=== PATIENT | male | born 1980 | race Caucasian/White ===

== ENCOUNTER 2018-02-06 16:06 | Emergency (ER) | payer BC, OTHER ==
[2018-02-06 16:59] VITALS: BP 129/86
--- NOTE | 2018-02-06 17:03 | UC ---
Laceration HPI - HPI Summary HPI Summary: 37 y/o male presents to the urgent care c/o RT hand laceration s/p manipulating his dean about 1 hrs ago this afternoon. Bleeding stopped w/ pressure. Pain is 7/10 sharp and throbbing. He can move hand and fingers w/o any difficulty. Pt is not sure when was his last Tetanus vaccine. Pt denies fever, numbness or tingling sensation over Rt hand, chest pain, abdominal pain, N/V/D. Pt is RT hand dominant. - History Of Current Complaint Chief Complaint: UCLaceration Stated Complaint: RIGHT HAND LAC Time Seen by Provider: 02/06/18 17:02 Hx Obtained From: Patient Laceration Location: Hand - RT hand Mechanism Of Injury: Sharp Trauma Onset/Duration: Sudden Onset, Lasting Hours - 1 hrs Pain Intensity: 7 Pain Scale Used: 0-10 Numeric Aggravating Factors: Movement Related History: Dominant Hand Right - Allergies/Home Medications Allergies/Adverse Reactions: Allergies Allergy/AdvReac Type Severity Reaction Status Date / Time No Known Allergies Allergy Verified 02/06/18 16:50 PMH/Surg Hx/FS Hx/Imm Hx Previously Healthy: Yes - Pt denies PMHX - Surgical History Surgical History: Yes Surgery Procedure, Year, and Place: 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 RATE,- 12/2016 - Family History Known Family History: Positive: Cardiac Disease, Hypertension, Diabetes - Social History Occupation: Employed Full-time Lives: With Family Alcohol Use: Weekly Alcohol Amount: 1-2 times a week Substance Use Type: None Smoking Status (MU): Former Smoker Type: Cigars Have You Smoked in the Last Year: Yes - Immunization History Most Recent Tetanus Shot: PT UNSURE Hx Tetanus, Diphtheria Vaccination: No Review of Systems Constitutional: Negative Skin: Other - RT hand laceration Eyes: Negative ENT: Negative Respiratory: Negative Cardiovascular: Negative Gastrointestinal: Negative Genitourinary: Negative Motor: Negative Neurovascular: Negative Musculoskeletal: Other: - RT hand pain s/p laceration Neurological: Negative Psychological: Negative Is Patient Immunocompromised?: No All Other Systems Reviewed And Are Negative: Yes Physical Exam - Summary Physical Exam Summary: Vital Signs Reviewed: Yes General: well developed, well nourished male sitting in the examining table w/o any apparent distress Eye Exam: Normal Eyes: Positive: Conjunctiva Clear - PERRLA, EOMI, fundi grossly normal ENT: Positive: Normal ENT inspection, Hearing grossly normal, Pharynx normal, TMs normal Neck: Positive: Supple, Nontender, No Lymphadenopathy Respiratory: Positive: Chest non-tender, Lungs clear, Normal breath sounds, No respiratory distress Cardiovascular: Positive: RRR, No Murmur, Pulses Normal, Brisk Capillary Refill Abdomen Description: Positive: Nontender, No Organomegaly, Soft. Negative: CVA Tenderness (R), CVA Tenderness (L) Bowel Sounds: Positive: Present Musculoskeletal: Positive: Strength Intact, ROM Intact, No Edema Neurological: Positive: Alert, Muscle Tone Normal Psychological Exam: Normal Skin: Positive: Dorsal side of the hand between first and second phalanx w/ a superficial laceration about 3.0cm in size, semilunar in shape, bleeding, no foreign body observed. mild tenderness to palpation, FROM of RT arm,hand and fingers, sensation intact, capillary refill brisk, and pulses WNL. Triage Information Reviewed: Yes Vital Signs: Initial Vital Signs Temp 98 F 02/06/18 16:51 Pulse 69 02/06/18 16:51 Resp 18 02/06/18 16:51 BP 129/86 02/06/18 16:51 Pulse Ox 98 02/06/18 16:51 Laceration Repair - Laceration Repair 1 Description: Linear - semilunar in shape Laceration Size After Repair: Length (cm) - 3.0cm Modified For Repair: No Type Injection: Local Anesthesia Used: 1.0% Lido - 3ml Cleansing Completed Via Routine Prep: Yes Irrigation With Pressure Irrigation Device: Yes Closure Material: Sutures - 7 sutures placed Closure Method: Single Layer Suture Of: Skin, SQ Suture Type: Nylon - 5.0 Laceration Course/Dx - Course/Dx Course Of Treatment: 37 y/o male presents to the urgent care c/o RT hand laceration s/p manipulating his dean about 1 hrs ago this afternoon. Bleeding stopped w/ pressure. Pain is 7/10 sharp and throbbing. He can move hand and fingers w/o any difficulty. Pt is not sure when was his last Tetanus vaccine. Pt denies fever, numbness or tingling sensation over Rt hand, chest pain, abdominal pain, N/V/D. Pt is RT hand dominant.Hx obtained. Pt w/Dorsal side of the hand between first and second phalanx w/ a superficial laceration about 3.0cm in size, semilunar in shape, bleeding, no foreign body observed. mild tenderness to palpation on examination. LACERATION PROCEDURE NOTE: . Copious irrigation was done with saline by the nurse and the wound explored. There was no FB or deep structure injury noted. FROM of RT forearm, hand and fingers. procedure was explained and consent obtained, Timeout performed. The wound was anesthetized with 3mL of 1% lido with good anesthesia. Sterile drape and prep were don. There were 16 sutures with 5.0 nylon type of suture. The length of the wound after closure was 3.0cm. No debridement done. Wound was covered bacitracin with sterile non adherent dressing. The Pt tolerated the procedure well without adverse effects. Neurovascular intact and FROM. Tdap ordered and applied by nurse. Pt advised to f/u suture removal in 10-14 days and if any signs of infection develop to immediately return to the urgent care of PCP for further management and treatment. Pt understood and agreed and left the clinic ambulating A&Ox3. - Differential Dx - Laceration/Wound Differental Diagnoses: Abrasion, Laceration, Puncture Wound, Tendon Laceration Provider Diagnoses: 1- RT hand laceration repair Discharge - Sign-Out/Discharge Documenting (check all that apply): Discharge/Admit/Transfer - D/C home - Discharge Plan Condition: Stable Disposition: HOME Prescriptions: Bacitracin OINTMENT* 1 applic TOPICAL BID #1 tube Patient Education Materials: Care For Your Stitches (DC), Laceration (ED) Forms: *Work Release Referrals: Dat Giordano MD [Primary Care Provider] - 1 Week Additional Instructions: 1-Please apply topical antibiotic over the wound. Keep wound clean and dry. Avoid too much flexion of your hand. 2- F/u suture removal in 10-14 days days days w/ your PCP or here at the urgent care. 3-Take Ibuprofen or Tylenol PO q6-8hrs prn for pain or swelling. 4- If you develop fever or redness around laceration please return to the urgetn care or f/u w/ your PCP for further management. - Billing Disposition and Condition Condition: STABLE Disposition: Home
[2018-02-06] MEDS ORDERED: Lidocaine 1%* 5 ML VIAL INJ ONE (17:16)
[2018-02-06] MEDS ORDERED: Ibuprofen TAB* 400 MG PO ONE (17:16)
[2018-02-06] MEDS ORDERED: Tetan/Diph/Pertus SYR(Tdap)* 0.5 ML SYR(BOOSTRIX) use SYR IM ONE (17:16)
== END 2018-02-06 18:28 | disposition home or self-care (01) ==
LOC: UCCORT 16:06
DX: S61.411A Laceration without foreign body of right hand, initial encounter (principal); W45.8XXA Other foreign body or object entering through skin, initial encounter; Y93.9 Activity, unspecified; Y99.9 Unspecified external cause status
CPT/HCPCS: 12001; 90471; 90715; 99212; A9270-GY; G0463

== ENCOUNTER 2018-02-12 09:34 | Emergency (ER) | payer BC ==
[2018-02-12 09:55] VITALS: BP 133/91
--- NOTE | 2018-02-12 10:17 | UC ---
HPI Wound/Suture Re-check - HPI Summary HPI Summary: Pt presents with c/o worsening tenderness, erythema at laceration/suture site on right dorsal aspect of hand. Pt hand sutures placed at [facility] on 03/08/18. Denies fever or chills. - History Of Current Complaint Chief Complaint: UCUpperExtremity Stated Complaint: SUTURE RECHECK Time Seen by Provider: 02/12/18 10:01 Hx Obtained From: Patient Onset/Duration: Gradual Onset, Lasting Days, Still Present Severity: Moderate Pain Intensity: 7 - Allergies/Home Medications Allergies/Adverse Reactions: Allergies Allergy/AdvReac Type Severity Reaction Status Date / Time No Known Allergies Allergy Verified 02/12/18 09:51 Home Medications: Home Medications Acetaminophen [Tylenol Extra Strength] 1,000 mg PO Q6HR PRN 02/12/18 [History Confirmed 02/12/18] PMH/Surg Hx/FS Hx/Imm Hx Previously Healthy: Yes - Surgical History Surgical History: Yes Surgery Procedure, Year, and Place: 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 RATE,- 12/2016 - Family History Known Family History: Positive: None, Cardiac Disease, Hypertension, Diabetes - Social History Occupation: Employed Full-time Lives: With Family Alcohol Use: Weekly Alcohol Amount: 1-2 times a week Substance Use Type: None Smoking Status (MU): Former Smoker Type: Cigars Have You Smoked in the Last Year: Yes - Immunization History Most Recent Tetanus Shot: 01/2018 Hx Tetanus, Diphtheria Vaccination: No Review of Systems Constitutional: Negative Skin: Other - erythema, tenderness, mild swelling Eyes: Negative ENT: Negative Respiratory: Negative Cardiovascular: Negative Gastrointestinal: Negative Genitourinary: Negative Motor: Negative, Decreased ROM - tenderness with ROm , right hand Neurovascular: Negative Musculoskeletal: Edema, Myalgia - right hand Neurological: Negative Psychological: Negative Is Patient Immunocompromised?: No All Other Systems Reviewed And Are Negative: Yes Physical Exam Triage Information Reviewed: Yes Appearance: Well-Appearing Vital Signs: Initial Vital Signs Temp 98.5 F 02/12/18 09:48 Pulse 69 02/12/18 09:48 Resp 15 02/12/18 09:48 BP 133/91 02/12/18 09:48 Pulse Ox 98 02/12/18 09:48 Vital Signs Reviewed: Yes Eye Exam: Normal ENT Exam: Normal Dental Exam: Normal Neck exam: Normal Respiratory Exam: Normal Respiratory: Positive: No respiratory distress Musculoskeletal: Positive: Edema @ - right hand, dorsal aspect, between, thumb and second finger. Neurological Exam: Normal Psychological Exam: Normal Skin Exam: Other - sutures intact, mild erythema, mild tenderness and scant amount of crusted, serous, yellow drainage. Course/Dx - Differential Dx - Laceration/Wound Differential Diagnoses: Cellulitis, Suture Removal Provider Diagnoses: sutures removed,. infected wound right hand Discharge - Sign-Out/Discharge Documenting (check all that apply): Discharge/Admit/Transfer - Discharge Plan Condition: Stable Disposition: HOME Prescriptions: Cephalexin CAP* [Keflex 500 CAP*] 500 mg PO Q12H #10 cap Fluconazole 100 MG TAB* [Diflucan 100 MG TAB*] 100 mg PO DAILY #2 tab Sulfamethox/Trimethoprim DS* [Bactrim DS 800/160 TAB*] 1 tab PO Q12H #10 tab Patient Education Materials: Wound Infection (ED), Acute Wound Care (ED) Referrals: Dat Giordano MD [Primary Care Provider] - If Needed Additional Instructions: Please follow up with your PCP or return to clinic as needed. - Billing Disposition and Condition Condition: STABLE Disposition: Home
== END 2018-02-12 10:36 | disposition home or self-care (01) ==
LOC: UCCORT 09:34
DX: S61.411D Laceration without foreign body of right hand, subsequent encounter (principal); L08.9 Local infection of the skin and subcutaneous tissue, unspecified; Z87.891 Personal history of nicotine dependence; X58.XXXD Exposure to other specified factors, subsequent encounter
CPT/HCPCS: 99213; G0463

== ENCOUNTER 2019-10-26 08:18 | Emergency (ER) | payer BC, OTHER ==
[2019-10-26 08:54] VITALS: BP 138/84
--- NOTE | 2019-10-26 09:54 | UC ---
Eye Complaint HPI - HPI Summary HPI Summary: 39-year-old male presents with onset of left eye redness, itching, and purulent discharge that started this morning. States he woke up with his eye crusted shut. Patient does she is a corticosteroid eyedrop for some chronic eye irritation which he did use this morning with no improvement. Does not wear contacts. Denies eye pain, visual disturbances, photophobia, injury, or URI symptoms. - History of Current Complaint Chief Complaint: UCEye Stated Complaint: EYE CONCERN Time Seen by Provider: 10/26/19 09:32 Hx Obtained From: Patient Pain Intensity: 4 - Allergies/Home Medications Allergies/Adverse Reactions: Allergies Allergy/AdvReac Type Severity Reaction Status Date / Time No Known Allergies Allergy Verified 10/26/19 08:51 Home Medications: Home Medications Loteprednol Etabonate [Lotemax] 1 drop OP DAILY PRN 10/26/19 [History Confirmed 10/26/19] Polymyx/Trimethoprim OPTH* [Polytrim OPHTH*] 1 drop LEFT EYE QID 7 Days #1 btl 10/26/19 [Rx] PMH/Surg Hx/FS Hx/Imm Hx Previously Healthy: Yes - Surgical History Surgical History: Yes Surgery Procedure, Year, and Place: 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 donated left kidney 2018 - Family History Known Family History: Positive: Cardiac Disease, Hypertension, Diabetes - Social History Occupation: Employed Full-time Lives: With Family Alcohol Use: Rare Alcohol Amount: 1-2 times a week Substance Use Type: None Smoking Status (MU): Former Smoker Type: Cigars Have You Smoked in the Last Year: Yes - Immunization History Most Recent Tetanus Shot: 01/2018 Hx Tetanus, Diphtheria Vaccination: No Review of Systems All Other Systems Reviewed And Are Negative: Yes Constitutional: Negative: Fever, Chills Skin: Negative: Rash Eyes: Positive: Drainage, Eye Redness. Negative: Blurred Vision, Diplopia, Photophobia ENT: Negative: Sore Throat, Ear Ache, Nasal Discharge, Sinus Congestion, Sinus Pain/Tenderness Respiratory: Negative: Cough Cardiovascular: Positive: Negative Gastrointestinal: Positive: Negative Genitourinary: Positive: Negative Musculoskeletal: Positive: Negative Neurological/Mental Status: Positive: Negative Is Patient Immunocompromised?: No Physical Exam - Summary Physical Exam Summary: GENERAL APPEARANCE: Well developed, well nourished, alert and cooperative, and appears to be in no acute distress. EYES: Right conjunctiva clear. No drainage. Left conjunctival erythema with purulent drainage. PERRL, EOM intact. Vision is grossly intact. EARS: External auditory canals and tympanic membranes clear, hearing grossly intact. NOSE: No nasal discharge. THROAT: Pharynx normal. No tonsilar inflammation, swelling, exudate, or lesions. Uvula midline. NECK: Neck supple, non-tender without lymphadenopathy. CARDIAC: Normal S1 and S2. No S3, S4 or murmurs. Rhythm is regular. There is no peripheral edema, cyanosis or pallor. Extremities are warm and well perfused. Capillary refill is less than 2 seconds. Peripheral pulses intact. LUNGS: Clear to auscultation without rales, rhonchi, wheezing or diminished breath sounds. ABDOMEN: Positive bowel sounds. Soft, nondistended, nontender. No guarding or rebound. No masses or hepatosplenomegally. MUSKULOSKELETAL: ROM intact to all extremities. No joint erythema or tenderness. Normal muscular development. Normal gait. SKIN: Skin normal color, texture and turgor with no lesions or eruptions. Triage Information Reviewed: Yes Vital Signs: Initial Vital Signs Temp 97.8 F 10/26/19 08:49 Pulse 69 10/26/19 08:49 Resp 15 10/26/19 08:49 BP 138/84 10/26/19 08:49 Pulse Ox 98 10/26/19 08:49 Vital Signs Reviewed: Yes Eye Complaint Course/Dx - Course Course Of Treatment: 39-year-old male presents with onset of left eye redness, itching, and purulent discharge that started this morning. States he woke up with his eye crusted shut. Patient does she is a corticosteroid eyedrop for some chronic eye irritation which he did use this morning with no improvement. Does not wear contacts. Denies eye pain, visual disturbances, photophobia, injury, or URI symptoms. Afebrile. Vital signs stable. On exam the right conjunctiva was clear without drainage. The left conjunctival erythema with purulent drainage. PERRL, EOM intact. Vision is grossly intact. Remainder of exam was unremarkable. We'll treat him for a bacterial conjunctivitis of the left eye with Polytrim ophthalmic drops 1 drop into the affected eye 4 times a day 7 days. He is to follow-up with his primary care provider in 3 days if symptoms are not improving. Anticipatory guidance warning symptoms were reviewed with the patient. Verbalizes understanding and agrees with plan of care. - Differential Dx/Diagnosis Differential Diagnosis/HQI/PQRI: Conjunctivitis, Corneal Abrasion, Foreign Body , Periorbital Cellulitis, Orbital Cellulitis Provider Diagnosis: Bacterial conjunctivitis of left eye Discharge ED - Sign-Out/Discharge Documenting (check all that apply): Patient Departure All imaging exams completed and their final reports reviewed: No Studies - Discharge Plan Condition: Stable Disposition: HOME Prescriptions: Polymyx/Trimethoprim OPTH* [Polytrim OPHTH*] 1 drop LEFT EYE QID 7 Days #1 btl Patient Education Materials: Conjunctivitis (ED) Referrals: Amber Brand MD [Primary Care Provider] - 3 Days (If no improvement.) Additional Instructions: Start Polymyxin B - trimethoprim ophthalmic drops. Instill 1 drop into the affected eye(s) 4 times a day for 7 days. Be sure to take the entire course even if improved. To avoid reinfection or spreading infection: * Use washcloths and towels once then launder. * Do not share washcloths or towels with others. * Change your pillow case each morning until you have finished treatment. Follow up here or with your primary care provider in 3 days if no improvement. Seek immediate medical attention in the emergency room if you develop fever greater than 100.5 F, have pain or swelling of the eye, visual disturbances, loss of vision, or any worsening of symptoms. - Billing Disposition and Condition Condition: STABLE Disposition: Home
== END 2019-10-26 10:16 | disposition home or self-care (01) ==
LOC: UCCORT 08:18
DX: H10.9 Unspecified conjunctivitis (principal); B96.89 Other specified bacterial agents as the cause of diseases classified elsewhere; Z87.891 Personal history of nicotine dependence
CPT/HCPCS: 99212; G0463